=== PATIENT | female | born 1995 | race Caucasian/White ===

== ENCOUNTER 2019-03-14 18:02 | Emergency (ER) | payer OTHER, SELFPAY ==
[2019-03-14 18:10] VITALS: BP 142/67; PULSE 95; RESP 20; TEMP 37.1; O2SAT 99
--- NOTE | 2019-03-14 18:34 | ED.URI ---
HPI - URI/Sore Throat General Chief Complaint: Upper Respiratory Infection Stated Complaint: strep throat Time Seen by Provider: 03/14/19 18:34 Source: patient and family History of Present Illness HPI Narrative: PATIENT PRESENTS WITH SORE THRAOT AND COUGH WITH RUNNY NOSE. pATIENT STATES SHE HAS A SMALL CHILD AT HOME AND HER GRANDPARENTS ARE ILL. PATIENT REQUESTS FLU AND STREP TESTING. NO TROUBLE SWALLOWIN NO DROOLING. MD elicited complaint: nasal congestion Related Data Home Medications Medication Instructions Recorded Confirmed bupropion HCl [Wellbutrin XL] 150 mg PO QAM 03/14/19 03/14/19 sertraline [Zoloft] 25 mg PO DAILY 03/14/19 03/14/19 Allergies Allergy/AdvReac Type Severity Reaction Status Date / Time No Known Allergies Allergy Verified 03/14/19 18:32 Review of Systems Review of Systems: Narrative: CONSTITUTIONAL: Denies fever, chills, or sweats. EYES: Denies visual changes, redness, or discharge. ENT: Denies rhinorrhea, congestion, sore throat, or otalgia. CARDIOVASCULAR: Denies chest pain, palpitations, or edema. RESPIRATORY: Denies cough or dyspnea. GASTROINTESTINAL: Denies abdominal pain, nausea, vomiting, or diarrhea. GENITOURINARY: Denies dysuria or hematuria. SKIN: Denies rash or itching. MUSCULOSKELETAL: Denies back pain, joint pain, or myalgia. NEUROLOGIC: Denies headache, numbness, or weakness. PSYCHIATRIC: Denies anxiety or depression. PMFSH Comments At time of signature, agree with nursing past medical, surgical, social and family history. There is no relevant family history pertinent to the presenting complaint Exam Narrative: Exam Narrative: The patient is a well-developed, well-nourished in no acute distress. SKIN: Skin is warm and dry without erythema, swelling or exudate. There is good turgor. No tenting. HEAD: Atraumatic. Normocephalic. No temporal or scalp tenderness. EYES: Moist and bright. Sclera and conjunctivae normal. No discharge. PERRLA. Extraocular motions intact. Gross visual acuity intact. EARS: Pinna is normal shape and contour. Clear external auditory canals. TM pearly blackwood with good cone of light, no erythema or suppuration. Bilateral cerumen noted no gross hearing deficit. NOSE: pink, moist mucosa with good air movement. Clear rhinorrhea without nasal flaring. Septum midline. Mouth: moist mucous membranes. THROAT; mild erythema noted to posterior oropharynx with moderate postnasal drainage. Without exudate or ulceration.. Uvula midline. Normal movement of soft palate. NECK: Supple and nontender with full range of motion without discomfort. No meningeal signs. LUNGS: Equal and bilateral breath sounds without wheezes, rales or rhonchi. CHEST: The chest wall is without retractions or use of accessory muscles. HEART: Has a regular rate and rhythm without murmur, gallops, click or rub. ABDOMEN: Soft, nontender with positive active bowel sounds. No rebound tenderness. EXTREMITIES: Without cyanosis, clubbing or edema. Equal 2+ distal pulses and 2 second capillary refill noted. NEUROLOGIC: alert, active, . The patient moves all extremities with normal muscle strength. Normal muscle tone is noted. Normal coordination is noted. NO focal neurological findings noted. Course Vital Signs Vital signs: Vital Signs Temperature 37.1 C 03/14/19 18:10 Pulse Rate 95 03/14/19 18:10 Respiratory Rate 20 03/14/19 18:10 Blood Pressure 142/67 H 03/14/19 18:10 Pulse Oximetry 99 03/14/19 18:10 Temperature 37.1 C 03/14/19 18:10 Pulse Rate 95 03/14/19 18:10 Respiratory Rate 20 03/14/19 18:10 Blood Pressure 142/67 H 03/14/19 18:10 Pulse Oximetry 99 03/14/19 18:10 Addressed elevated BP today. Today's blood pressure higher than recommended range. 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 Currently patient denies headache, dizziness, vision changes, CP or shortness of breath. Critical dx considered
== END 2019-03-14 18:48 | disposition home or self-care (01) ==
PROVIDERS: Emergency Provider Nurse Practitioner Family
DX: B34.9 Viral infection, unspecified (principal); J06.9 Acute upper respiratory infection, unspecified
CPT/HCPCS: 87081; 87804; 87880; 99203; G0463

== ENCOUNTER 2019-11-15 19:12 | Emergency (ER) | payer OTHER, SELFPAY ==
[2019-11-15 19:30] VITALS: BP 112/52; PULSE 92; RESP 18; TEMP 36.8; O2SAT 99
[2019-11-15 19:36] VITALS: BP 112/52; PULSE 92; RESP 18; TEMP 36.8; O2SAT 99
--- NOTE | 2019-11-15 19:45 | ED.URI ---
HPI - URI/Sore Throat General Chief Complaint: Nausea/Vomiting/Diarrhea Stated Complaint: fever 100/vomitting/muscle aches Time Seen by Provider: 11/15/19 19:22 Source: patient and RN notes reviewed Mode of arrival: ambulatory Limitations: no limitations History of Present Illness HPI Narrative: Patient presents today cough, congestion, body aches, fatigue. Symptoms have been present for 1 week and almost week she has also had postnasal drip, diarrhea, vomiting, sore throat, and fever up to 100. Diarrhea and vomiting lasted for 2 days. Vomiting stopped yesterday. She did have one episode of diarrhea today. Currently rates her sore throat 04/14 and has been taking ibuprofen with some relief. She is able to keep down fluids today. States children in the home are sick with similar symptoms that have been improving as well. MD elicited complaint: sore throat Related Data Home Medications Medication Instructions Recorded Confirmed naproxen 375 mg PO BID PRN 11/15/19 11/15/19 topiramate 50 mg PO HS PRN 11/15/19 11/15/19 Allergies Allergy/AdvReac Type Severity Reaction Status Date / Time No Known Allergies Allergy Verified 03/14/19 18:32 Review of Systems Review of Systems: Narrative: CONSTITUTIONAL: Denies fever, chills, or sweats.+ Body aches, fatigue EYES: Denies visual changes, redness, or discharge. ENT: Denies rhinorrhea, or otalgia.+ Congestion, sore throat CARDIOVASCULAR: Denies chest pain, palpitations, or edema. RESPIRATORY: Denies cough or dyspnea. GASTROINTESTINAL: Denies abdominal pain, nausea, vomiting, or diarrhea. GENITOURINARY: Denies dysuria or hematuria. SKIN: Denies rash, itching, or wounds. MUSCULOSKELETAL: Denies back pain, joint pain, or myalgia. NEUROLOGIC: Denies headache, numbness, tingling, or weakness. PSYCH: Denies depression or anxiety. PMFSH Comments At time of signature, I have reviewed and agree with nursing past medical, surgical, social and family history unless otherwise noted. Please see nursing chart for further information. There is no relevant family history pertinent to the presenting complaint Exam Narrative: Exam Narrative: GENERAL: Well-appearing, well-nourished, and in no acute distress. HEAD: Normocephalic, atraumatic. EYES: EOMI. No redness or drainage. Conjunctivae normal. ENT: Mucous membranes pink and moist. Nares clear. No rhinorrhea. TMs normal bilaterally. Throat normal. Uvula midline. NECK: Normal AROM. Supple. No lymphadenopathy. CHEST: No respiratory distress. Clear to auscultation. HEART: Regular rate and rhythm. No murmur appreciated. Normal peripheral pulses. ABDOMEN: Soft, nontender, nondistended, normal active bowel sounds. MUSCULOSKELETAL: No bony tenderness. EXTREMITIES: Normal range of motion. No edema. SKIN: Warm, dry, no rash. Capillary refill normal. Normal skin turgor. NEURO: No focal deficits. Alert and oriented x3. Gait steady. PSYCH: Normal affect. No signs of depression or anxiety. Course Course Emergency Course: As patient has already had symptoms for the last 7 days and would not be able to be COVID swabbed at [facility] for at least 2 if not 3 days, I have not ordered a COVID test, but did discuss with patient that she needs to be sure to quarantine until she has reached 10 days since symptoms began. Patient agrees. Vital Signs Vital signs: Vital Signs Temperature 98.3 F 11/15/19 19:30 Pulse Rate 92 11/15/19 19:30 Respiratory Rate 18 11/15/19 19:30 Blood Pressure 112/52 L 11/15/19 19:30 Pulse Oximetry 99 11/15/19 19:30 Temperature 98.3 F 11/15/19 19:36 Pulse Rate 92 11/15/19 19:36 Respiratory Rate 18 11/15/19 19:36 Blood Pressure 112/52 L 11/15/19 19:36 Pulse Oximetry 99 11/15/19 19:36 Reviewed MDM - URI/Sore Throat Differential Diagnosis Differential diagnosis: Likely upper respiratory infection, sinusitis, influenza, pharyngitis and other (Strep throat, viral syndrome, COVID-19) Lab [facility]
== END 2019-11-15 19:50 | disposition home or self-care (01) ==
PROVIDERS: Emergency Provider Nurse Practitioner
DX: B34.9 Viral infection, unspecified (principal)
CPT/HCPCS: 87081; 87880; 99213; G0463

== ENCOUNTER 2020-02-27 20:16 | Emergency (ER) | payer OTHER, SELFPAY ==
--- NOTE | ~2020-02-27 | XR_ITS ---
EXAMINATION: XR shoulder RT min 2V INDICATION: Right shoulder pain TECHNIQUE: Four views of the right shoulder are submitted. COMPARISON: None FINDINGS: Normal alignment. No fracture. Glenohumeral and acromioclavicular joint spaces are normal. Soft tissues are unremarkable. IMPRESSION: 1. No acute osseous abnormality. Reviewed, dictated and finalized at location A. REPAIR MACHINIST
[2020-02-27 20:21] VITALS: BP 112/64; PULSE 74; RESP 16; TEMP 37.2; O2SAT 95
[2020-02-27 22:20] VITALS: BP 112/71; PULSE 90; RESP 12; O2SAT 99
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
[2020-02-28 00:05] VITALS: BP 120/77; PULSE 82; RESP 19; TEMP 37.2; O2SAT 98
== END 2020-02-28 00:05 | disposition home or self-care (01) ==
PROVIDERS: Emergency Provider Emergency Medicine; PCP Family Medicine
DX: M25.511 Pain in right shoulder (principal)
CPT/HCPCS: 73030; 81025; 99283

== ENCOUNTER 2020-03-05 08:56 | Emergency (ER) | payer OTHER, SELFPAY ==
--- NOTE | 2020-03-05 09:05 | ED_ITS ---
HPI - URI/Sore Throat General Chief Complaint: Upper Respiratory Infection Stated Complaint: Sore Throat Time Seen by Provider: 03/05/20 09:06 Source: patient and RN notes reviewed Mode of arrival: ambulatory Limitations: no limitations History of Present Illness HPI Narrative: 25-year-old female presents to the emergency room with complaints of Related Data Allergies Allergy/AdvReac Type Severity Reaction Status Date / Time No Known Allergies Allergy Verified 03/05/20 09:05 Review of Systems Review of Systems: Narrative: CONSTITUTIONAL: Denies fever, chills, or sweats. EYES: Denies visual changes, redness, or discharge. ENT: Denies rhinorrhea, congestion, sore throat, or otalgia. CARDIOVASCULAR: Denies chest pain, palpitations, or edema. RESPIRATORY: Denies cough or dyspnea. GASTROINTESTINAL: Denies abdominal pain, nausea, vomiting, or diarrhea. GENITOURINARY: Denies dysuria or hematuria. SKIN: Denies rash or itching. MUSCULOSKELETAL: Denies back pain, joint pain, or myalgia. NEUROLOGIC: Denies headache, numbness, or weakness. PSYCHIATRIC: Denies anxiety or depression. All other systems reviewed are negative, except as documented in HPI. [facility] Past Medical History Medical History (Updated 02/29/20 @ 00:01 by Carol Rodriguez) Healthy female adult Surgical History Surgical History (Updated 02/28/20 @ 00:02 by Reji Salinas MD) No history of previous surgery Social History Social History (Updated 02/28/20 @ 00:02 by Reji Salinas MD) Smoking status: Never smoker Comments At the time of my signature, I reviewed and agree with the nursing past medical, surgical, social, and family history. There is no relevant family history pertinent to the patient complaint. Exam Narrative: Exam Narrative: GENERAL: This is a well-nourished, well-developed patient, in no apparent distress. HEAD: normocephalic, atraumatic. EYES: PERRL. Sclera clear/white. Vision is grossly intact. EARS: External ears normal, auditory canals clear and without drainage, TMs normal without perforation. Hearing grossly intact. NOSE: External nose normal with no obvious nasal discharge, nares without redness, no rhinorrhea. THROAT: Mucous membranes moist, posterior pharynx clear. NECK: Neck supple, non-tender without lymphadenopathy, masses or thyromegaly. CARDIOVASCULAR: Regular rate and rhythm without murmurs, gallops, or rubs. RESPIRATORY: Clear to auscultation. Breath sounds equal bilaterally. No wheezes, rales, or rhonchi. GASTROINTESTINAL: Abdomen soft, non-tender, nondistended. Bowel sounds are active. No hepato-splenomegaly, or palpable masses. No guarding. SKIN: warm, intact with no suspicious lesions or rash, good texture and turgor. NEURO: awake, alert, and oriented to person, place and time. There were no obvious focal neurologic abnormalities. EXTREMITIES: No clubbing, cyanosis, or edema. No joint tenderness, effusion, or edema noted. No calf tenderness. Negative Homans sign bilaterally. BACK: Nontender without deformity or crepitance. No flank tenderness. MDM - URI/Sore Throat Differential Diagnosis Differential diagnosis: Likely upper respiratory infection, otitis media, sinusitis, viral infection, bronchitis, influenza and pharyngitis Critical Care Time Critical Care Time Critical Care Time: No Discharge Plan Discharge Prescriptions: No Action ibuprofen 800 mg tablet 800 mg PO TID Qty: 20 RF: 0
== END 2020-03-05 09:06 | disposition left against medical advice (07) ==
PROVIDERS: Emergency Provider Nurse Practitioner
DX: Z53.21 Procedure and treatment not carried out due to patient leaving prior to being seen by health care provider (principal)
CPT/HCPCS: 99199

== ENCOUNTER 2020-03-05 09:16 | Emergency (ER) | payer OTHER, SELFPAY ==
[2020-03-05 09:25] VITALS: BP 126/60; PULSE 109; RESP 20; TEMP 36.5; O2SAT 100
--- NOTE | 2020-03-05 10:03 | ED.URI ---
HPI - URI/Sore Throat General Chief Complaint: Upper Respiratory Infection Stated Complaint: sore throat Time Seen by Provider: 03/05/20 09:46 Source: patient and RN notes reviewed Mode of arrival: ambulatory Limitations: no limitations History of Present Illness HPI Narrative: Patient presents today complaining of sore throat since last night, nasal congestion, postnasal drip. Denies fever, rhinorrhea, cough, headache, nausea, vomiting, diarrhea. No known exposure to Covid. No recent COVID-19 infection. Currently rates her sore throat 09/14 and has tried no [id number] treatment prior to arrival. MD elicited complaint: sore throat Related Data Home Medications Medication Instructions Recorded Confirmed No Home Medications 03/05/20 03/05/20 Allergies Allergy/AdvReac Type Severity Reaction Status Date / Time No Known Allergies Allergy Verified 03/05/20 09:38 Review of Systems Review of Systems: Narrative: CONSTITUTIONAL: Denies body aches, fever, chills, or sweats. EYES: Denies visual changes, redness, or discharge. ENT: Denies rhinorrhea or otalgia. + Congestion, postnasal drip, sore throat CARDIOVASCULAR: Denies chest pain, palpitations, or edema. RESPIRATORY: Denies cough or dyspnea. GASTROINTESTINAL: Denies abdominal pain, nausea, vomiting, or diarrhea. GENITOURINARY: Denies dysuria or hematuria. SKIN: Denies rash, itching, or wounds. MUSCULOSKELETAL: Denies back pain, joint pain, or myalgia. NEUROLOGIC: Denies headache, numbness, tingling, or weakness. PSYCH: Denies depression or anxiety. PMFSH Past Medical History Medical History (Updated 03/05/20 @ 11:49 by Nubia Avendano, [facility], ) Healthy female adult Migraines Surgical History Surgical History (Updated 02/28/20 @ 00:02 by Reji Salinas MD) No history of previous surgery Social History Social History (Updated 02/28/20 @ 00:02 by Reji Salinas MD) Smoking status: Never smoker Comments At time of signature, I have reviewed and agree with nursing past medical, surgical, social and family history unless otherwise noted. Please see nursing chart for further information. There is no relevant family history pertinent to the presenting complaint Exam Narrative: Exam Narrative: GENERAL: Well-appearing, well-nourished, and in no acute distress. HEAD: Normocephalic, atraumatic. EYES: EOMI. No redness or drainage. Conjunctivae normal. ENT: Mucous membranes pink and moist. Nares clear. No rhinorrhea. TMs normal bilaterally. Throat mildly erythematous without edema or exudate. Uvula midline. NECK: Normal AROM. Supple. No lymphadenopathy. CHEST: No respiratory distress. Clear to auscultation. HEART: Regular rate and rhythm. No murmur appreciated. Normal peripheral pulses. EXTREMITIES: Normal range of motion. No edema. SKIN: Warm, dry, no rash. Capillary refill normal. Normal skin turgor. NEURO: No focal deficits. Alert and oriented x3. Gait steady. PSYCH: Normal affect. No signs of depression or anxiety. Course Vital Signs Vital signs: Vital Signs Temperature 97.7 F 03/05/20 09:25 Pulse Rate 109 H 03/05/20 09:25 Respiratory Rate 20 03/05/20 09:25 Blood Pressure 126/60 03/05/20 09:25 Pulse Oximetry 100 03/05/20 09:25 Temperature 97.7 F 03/05/20 09:25 Pulse Rate 109 H 03/05/20 09:25 Respiratory Rate 20 03/05/20 09:25 Blood Pressure 126/60 03/05/20 09:25 Pulse Oximetry 100 03/05/20 09:25 Reviewed. Pt has been instructed to follow up with her PCP regarding her elevated blood pressure today. MDM - URI/Sore Throat MDM Narrative Medical decision making narrative: Patient declines COVID-19 test. Lab Data Labs: Strep Screen Presumptive Negative *(Reference Range: Negative)* Critical Care Time Critical Care Time Critical Care Time: No Discharge Plan Discharge Clinical Impression: Pharyngitis Qualifiers: Pharyngi
== END 2020-03-05 10:09 | disposition home or self-care (01) ==
PROVIDERS: Emergency Provider Nurse Practitioner; PCP Family Medicine
DX: J02.9 Acute pharyngitis, unspecified (principal)
CPT/HCPCS: 87081; 87880; 99213; G0463

== ENCOUNTER 2020-03-10 17:50 | Emergency (ER) | payer OTHER, SELFPAY ==
[2020-03-10 18:00] VITALS: BP 128/72; PULSE 101; RESP 16; TEMP 37.4; O2SAT 98
--- NOTE | 2020-03-10 18:13 | ED.URI ---
HPI - URI/Sore Throat General Chief Complaint: Upper Respiratory Infection Stated Complaint: Possible COVID Exposure Time Seen by Provider: 03/10/20 18:13 Source: patient and RN notes reviewed History of Present Illness HPI Narrative: Patient is a 25-year-old female who presents the urgent care reporting that she has had body aches, chills, cough, sore throat since March 05. Patient initially checked in for a Covid test for possible Covid exposure and then proceeded to exaggerate her story. Patient states that her roommate did lose the loss of taste and smell over the last 24 hours and has been tested for Covid today. Patient states that they live together full-time and they eat and drink after one another often. Patient states that she has taken Tylenol a few times. Currently denies any loss of taste or smell. Denies of shortness of breath or chest pain. Patient does not appear to be fatigued. No acute distress noted. Patient aware of the plan of care. Some parts of this dictation were generated by voice recognition software and may contain typographical and/or grammatical inaccuracies. Related Data Home Medications Medication Instructions Recorded Confirmed No Home Medications 03/05/20 03/05/20 Allergies Allergy/AdvReac Type Severity Reaction Status Date / Time No Known Allergies Allergy Verified 03/10/20 18:15 Review of Systems Review of Systems: Narrative: CONSTITUTIONAL: Reports of chills EYES: Denies visual changes, redness, or discharge. ENT: Reports of runny nose, sore throat CARDIOVASCULAR: Denies chest pain, palpitations, or edema. RESPIRATORY: Reports a mild nonproductive cough GASTROINTESTINAL: Denies abdominal pain, nausea, vomiting, or diarrhea. GENITOURINARY: Denies dysuria or hematuria. SKIN: Denies rash or itching. MUSCULOSKELETAL: Denies back pain, joint pain. Reports of body aches NEUROLOGIC: Denies headache, numbness, or weakness. All other systems reviewed are negative, except as documented in HPI. [facility] Past Medical History Medical History (Updated 03/10/20 @ 18:22 by DONNELL Jang) Healthy female adult Migraines Surgical History Surgical History (Updated 02/28/20 @ 00:02 by Reji Salinas MD) No history of previous surgery Social History Social History (Updated 02/28/20 @ 00:02 by Reji Salinas MD) Smoking status: Never smoker Comments At the time of my signature, I reviewed and agree with the nursing past medical, surgical, social, and family history. There is no relevant family history pertinent to the patient complaint. Exam Narrative: Exam Narrative: GENERAL: This is a well-nourished, well-developed patient, in no apparent distress. HEAD: normocephalic, atraumatic. EYES: PERRL. Sclera clear/white. Vision is grossly intact. EARS: External ears normal, auditory canals clear and without drainage, TMs normal without perforation. Hearing grossly intact. NOSE: External nose normal with no obvious nasal discharge, nares without redness, no rhinorrhea. THROAT: Mucous membranes moist, posterior pharynx clear. Mild postnasal drainage NECK: Neck supple CARDIOVASCULAR: Regular rate and rhythm without murmurs, gallops, or rubs. RESPIRATORY: Clear to auscultation. Breath sounds equal bilaterally. No wheezes, rales, or rhonchi. SKIN: warm, intact with no suspicious lesions or rash, good texture and turgor. NEURO: awake, alert, and oriented to person, place and time. There were no obvious focal neurologic abnormalities. EXTREMITIES: No clubbing, cyanosis, or edema. Course Vital Signs Vital signs: Vital Signs Temperature 99.4 F 03/10/20 18:00 Pulse Rate 101 H 03/10/20 18:00 Respiratory Rate 16 03/10/20 18:00 Blood Pressure 128/72 03/10/20 18:00 Pulse Oximetry 98 03/10/20 18:00 Temperature 99.4 F 03/10/20 18:00 Pulse Rate 101 H 03/10/20 18:00 Respiratory Rate 16 03/10/20 18:00 Blood Pressure 128/72 03/10/20 18:00 Pulse
== END 2020-03-10 18:26 | disposition home or self-care (01) ==
PROVIDERS: Emergency Provider Nurse Practitioner Family; PCP Family Medicine
DX: J02.9 Acute pharyngitis, unspecified (principal); Z20.822 Contact with and (suspected) exposure to COVID-19
CPT/HCPCS: 87081; 87880; 99213; G0463